=== PATIENT | male | born 1945 | race American Indian/Alaskan Native ===

== ENCOUNTER 2017-09-11 14:15 | Emergency (ER) | payer MEDICARE, OTHER ==
[2017-09-11] MEDS ORDERED: NACL 0.9% 1000 ML 1,000 ML IV ONE (14:56)
--- NOTE | 2017-09-11 14:56 | Emergency Department Report ---
ED Syncope HPI - General Chief Complaint: Syncope Stated Complaint: SYNCOPE Time Seen by Provider: 09/11/17 14:54 Source: patient, EMS Exam Limitations: no limitations - History of Present Illness Initial Comments: Patient is a 72-year-old male that presents emergency room with a syncopal episode 1. Patient is brought in by EMS from the gym. Patient states he was working out and running on an elliptical machine when he started to feel lightheaded and he sat down and the next thing he knew he was on the floor waking up. Positive LOC for unknown amount of time patient states he believes it was seconds. Patient denies chest pain shortness of breath patient denies any other symptoms. Timing/Prior Episodes: no prior history, single episode today Precipitating Factors: Positive: lightheadedness Context: standing Loss of Consciousness: brief (seconds) Current Symptoms: back to normal. denies: blurred vision, chest pain, diaphoresis, dizziness, headache, injury, lightheadedness, loss of bladder control, loss of bowel control, motionless, nausea, pale, shallow/rapid breathing, weak/absent pulse, weakness - Related Data Allergies/Adverse Reactions: Allergies pantoprazole Allergy (Verified 10/26/15 09:04) Rash Home Medications: Ambulatory Orders Arginine HCl [l-Arginine] 2,000 mg PO DAILY 10/26/15 Ascorbic Acid [Vitamin C] 500 mg PO BID 10/26/15 Aspirin [Adult Low Dose Aspirin EC] 81 mg PO DAILY 10/26/15 Butalb/Acetamin/Caff 50-325-40 [Fioricet] 1 tab PO Q8HR PRN 10/26/15 Calcium Carb/Vit D3/Minerals [Caltrate Plus] 1 tab PO BID 10/26/15 Cholecalciferol Vit D3 [Vitamin D3] 1,000 unit PO QDAY 10/26/15 Dabigatran [Pradaxa] 150 mg PO BID 10/26/15 Fluticasone [Flonase] 1 spray NS BID PRN 10/26/15 Levomefolate/B6/B12/Algal Oil [Metanx Capsule] 1 each PO DAILY 10/26/15 Metoprolol [Lopressor TAB] 25 mg PO DAILY 10/26/15 Multivit-Min/Iron Fum/Folic AC [Yusqx-Sqxcnyv-Zxqfmsjo Tablet] 1 tab PO DAILY NIFEdipine XL [Procardia Xl] 60 mg PO Q12HR 10/26/15 Tadalafil [Cialis] 5 mg PO QDAY 10/26/15 Valsartan/Hydrochlorothiazide [Diovan Hct 320-12.5 mg] 1 tab PO Q12H 10/26/15 Vardenafil HCl [Levitra] 20 mg PO QDAY PRN 10/26/15 Cyclobenzaprine [Flexeril] 10 mg PO BID PRN #12 tablet 10/31/15 methylPREDNISolone [Medrol] 4 mg PO DAILY #1 tab.ds.pk 10/31/15 traMADol [Ultram] 50 mg PO Q6HR PRN #12 tablet 10/31/15 ED Review of Systems ROS: Stated complaint: SYNCOPE Other details as noted in HPI Comment: All other systems reviewed and negative Constitutional: denies: chills, fever Eyes: denies: eye pain, eye discharge, vision change ENT: denies: ear pain, throat pain Respiratory: denies: cough, shortness of breath, wheezing Cardiovascular: denies: chest pain, palpitations Endocrine: no symptoms reported Gastrointestinal: denies: abdominal pain, nausea, diarrhea Genitourinary: denies: urgency, dysuria Musculoskeletal: denies: back pain, joint swelling, arthralgia Skin: denies: rash, lesions Neurological: denies: headache, weakness, paresthesias Psychiatric: denies: anxiety, depression Hematological/Lymphatic: denies: easy bleeding, easy bruising ED Past Medical Hx - Past Medical History Previous Medical History?: Yes Hx Hypertension: Yes Additional medical history: back pain, pleurisy, intestinal tear, ablation - Surgical History Past Surgical History?: Yes Additional Surgical History: spinal fusion, sinus/ear surgery, - Family History Family history: hypertension - Social History Smoking Status: Never Smoker Substance Use Type: Alcohol - Medications Home Medications: Home Medications Medication Instructions Recorded Confirmed Last Taken Type Arginine HCl [l-Arginine] 2,000 mg PO DAILY 10/26/15 10/26/15 10/26/15 07:00 History Ascorbic Acid [Vitamin C] 500 mg PO BID 10/26/15 10/26/15 10/26/15 07:00 History Aspirin [Adult Low Dose Aspirin EC] 81 mg PO DAILY 10/26/15 10/26/15 10/25/15 History Butalb/Acetamin/Caff 50-325-40 1 tab PO Q8HR PRN 10/26/15 10/26/15 Unknown History [Fioricet] Calcium Carb/Vit D3/Minerals 1 tab PO BID 10/26/15 10/26/15 10/26/15 07:00 History [Caltrate Plus] Cholecalciferol Vit D3 [Vitamin D3] 1,000 unit PO QDAY 10/26/15 10/26/15 07:00 History Dabigatran [Pradaxa] 150 mg PO BID 10/26/15 10/26/15 10/26/15 07:00 History Fluticasone [Flonase] 1 spray NS BID PRN 10/26/15 10/26/15 10/26/15 History 0700 Levomefolate/B6/B12/Algal Oil 1 each PO DAILY 10/26/15 10/26/15 10/26/15 07:00 History [Metanx Capsule] Metoprolol [Lopressor TAB] 25 mg PO DAILY 10/26/15 10/26/15 10/26/15 07:00 History Multivit-Min/Iron Fum/Folic AC 1 tab PO DAILY 10/26/15 10/26/15 10/26/15 07:00 History [Hltwn-Nicwbgt-Lxdoasnj Tablet] NIFEdipine XL [Procardia Xl] 60 mg PO Q12HR 10/26/15 10/26/15 10/26/15 07:00 History Tadalafil [Cialis] 5 mg PO QDAY 10/26/15 10/26/15 Unknown History Valsartan/Hydrochlorothiazide 1 tab PO Q12H 10/26/15 10/26/15 10/26/15 07:00 History [Diovan Hct 320-12.5 mg] Vardenafil HCl [Levitra] 20 mg PO QDAY PRN 10/26/15 10/26/15 Unknown History Cyclobenzaprine [Flexeril] 10 mg PO BID PRN #12 tablet 10/31/15 Unknown Rx methylPREDNISolone [Medrol] 4 mg PO DAILY #1 tab.ds.pk 10/31/15 Unknown Rx traMADol [Ultram] 50 mg PO Q6HR PRN #12 tablet 10/31/15 Unknown Rx ED Physical Exam - General Limitations: No Limitations General appearance: alert, in no apparent distress - Head Head exam: Present: atraumatic, normocephalic - Eye Eye exam: Present: normal appearance - ENT ENT exam: Present: mucous membranes moist - Neck Neck exam: Present: normal inspection - Respiratory Respiratory exam: Present: normal lung sounds bilaterally. Absent: respiratory distress - Cardiovascular Cardiovascular Exam: Present: regular rate, normal rhythm. Absent: systolic murmur, diastolic murmur, rubs, gallop - GI/Abdominal GI/Abdominal exam: Present: soft, normal bowel sounds - Rectal Rectal exam: Present: deferred - Extremities Exam Extremities exam: Present: normal inspection - Back Exam Back exam: Present: normal inspection - Neurological Exam Neurological exam: Present: alert, oriented X3 - Psychiatric Psychiatric exam: Present: normal affect, normal mood - Skin Skin exam: Present: warm, dry, intact, normal color. Absent: rash ED Course Vital Signs 09/11/17 09/11/17 14:32 16:23 Temperature 98 F Pulse Rate 57 L 82 Respiratory 16 16 Rate Blood Pressure 124/69 Blood Pressure 136/58 [Left] O2 Sat by Pulse 97 96 Oximetry - Reevaluation(s) Reevaluation #1: Discussed all results with patient. We'll check urine and repeat CBC and normal or better we'll send patient home. 09/11/17 17:31 ED Medical Decision Making - Lab Data Result diagrams: 09/11/17 18:10 09/11/17 15:07 - EKG Data -: EKG Interpreted by [facility] EKG shows normal: sinus rhythm, axis, intervals, QRS complexes, ST-T waves Rate: bradycardia - EKG Data Interpretation: no acute changes, normal EKG - Radiology Data Radiology results: report reviewed normal limits CT. - Medical Decision Making 9-year-old male presents emergency room with complaints of a syncopal episode that occurred while he was working out. Workup returned unremarkable. Patient states he feels good and is ready to go home. Patient is stable for discharge. Patient given all discharge instructions. - Differential Diagnosis exercise-induced syncope. Isolated syncopal episode. Dehydration Critical care attestation.: If time is entered above; I have spent that time in minutes in the direct care of this critically ill patient, excluding procedure time. ED Disposition Clinical Impression: Syncope, Leukocytosis Disposition: DC-01 TO HOME OR SELFCARE Is pt being admited?: No Does the pt Need Aspirin: No Condition: Stable Instructions: Syncope (ED) Additional Instructions: Patient to follow up with primary care in 3-5 days. Patient to return to ER if condition worsens. Patient to increase water. Patient to avoid any strenuous exercise until seeing primary care. Primary care to clear patient to go back to strenuous exercise and activities. Patient to rest. Referrals: PRIMARY CARE, [Referring] - 3-5 Days Time of Disposition: 19:05
[2017-09-11 15:20] LABS: Basophils # (Auto) 0.1 K/mm3 (0.0-0.1); Basophils % (Auto) 0.7 % (0.0-1.8); Eosinophils # (Auto) 0.1 K/mm3 (0.0-0.4); Eosinophils % (Auto) 0.5 % (0.0-4.3); Hematocrit 48.2 % (35.5-45.6); Hemoglobin 15.9 gm/dl (11.8-15.2); Lymphocytes % (Auto) 6.2 % (13.4-35.0); Mean Corpuscular HGB Conc 33 % (32-34); Mean Corpuscular Hemoglobin 31 pg (28-32); Mean Corpuscular Volume 94 fl (84-94); Monocytes # (Auto) 1.1 K/mm3 (0.0-0.8); Monocytes % (Auto) 6.9 % (0.0-7.3); Platelet Count 160 K/mm3 (140-440); Red Blood Count 5.16 M/mm3 (3.65-5.03)
[2017-09-11 15:33] LABS: Creatine Kinase MB 1.9 ng/mL (0.0-4.0)
[2017-09-11 15:35] LABS: Alanine Aminotransferase 20 units/L (7-56); Albumin 3.7 g/dL (3.9-5); BUN/Creatinine Ratio 18; Blood Urea Nitrogen 18 mg/dL (9-20); Calcium 8.1 mg/dL (8.4-10.2); Hemolysis Index 15
[2017-09-11 16:25] VITALS: BP 136/58
--- NOTE | 2017-09-11 16:30 | Cat Scan Report ---
FINAL REPORT EXAM: CT HEAD/BRAIN WO CON HISTORY: Syncope TECHNIQUE: Noncontrast CT axial images of the brain. PRIORS: None. FINDINGS: No parenchymal mass, hemorrhage, midline shift or hydrocephalus. No evidence of acute cortical infarct. No abnormal, extra-axial fluid or air collection. Focal encephalomalacia in the right posterior frontal and right paramedian occipital regions suggesting old ischemic change or infarcts. Age related volume loss. Osseous calvarium grossly intact. Mild mucosal thickening in the right ethmoid and sphenoid sinuses. IMPRESSION: 1. No acute intracranial findings. 2. Chronic ischemic and atrophic changes.
[2017-09-11 18:23] LABS: Hematocrit 53.2 % (35.5-45.6); Hemoglobin 17.4 gm/dl (11.8-15.2); Mean Corpuscular HGB Conc 33 % (32-34); Mean Corpuscular Hemoglobin 31 pg (28-32); Mean Corpuscular Volume 95 fl (84-94); Platelet Count 178 K/mm3 (140-440); Red Blood Count 5.63 M/mm3 (3.65-5.03); Red Cell Distribution Width 13.9 % (13.2-15.2)
[2017-09-11 18:30] LABS: Bilirubin,Urine NEG (Negative); Blood,Urine NEG (Negative); Color,Urine Yellow (Yellow); Protein,Urine <15 mg/dL mg/dL (Negative); Urobilinogen,Urine < 2.0 mg/dL (<2.0); WBC,Urine < 1.0 /HPF (0.0-6.0)
== END 2017-09-11 19:29 | disposition home or self-care (01) ==
LOC: ED 14:15
DX: R55 Syncope and collapse (principal); D72.829 Elevated white blood cell count, unspecified; I10 Essential (primary) hypertension; Z79.82 Long term (current) use of aspirin
CPT/HCPCS: 36415; 70450; 80053; 81001; 82550; 82553; 84484; 85025; 85027; 93005; 93010; 96360; 99284; J7030

== ENCOUNTER 2017-12-16 08:56 | Outpatient (CLI) | payer MEDICARE, OTHER | END 2017-12-16 08:57 | disposition home or self-care (01) | LOC: ECHO 08:56 | PROVIDERS: ATTEND Internal Medicine Cardiovascular Disease | DX: I34.0 Nonrheumatic mitral (valve) insufficiency (principal); I42.9 Cardiomyopathy, unspecified; I10 Essential (primary) hypertension; I48.91 Unspecified atrial fibrillation; I63.9 Cerebral infarction, unspecified; M47.892 Other spondylosis, cervical region; Z88.8 Allergy status to other drugs, medicaments and biological substances; Z87.891 Personal history of nicotine dependence | CPT/HCPCS: 93306 ==

== ENCOUNTER 2019-04-04 09:19 | Outpatient (CLI) | payer MEDICARE, OTHER | END 2019-04-04 09:20 | disposition home or self-care (01) | LOC: ECHO 09:19 | PROVIDERS: ATTEND Internal Medicine Cardiovascular Disease | DX: I08.8 Other rheumatic multiple valve diseases (principal); I11.9 Hypertensive heart disease without heart failure | CPT/HCPCS: 93306 ==

== ENCOUNTER 2019-04-30 12:53 | Emergency (ER) | payer MEDICARE, OTHER ==
[2019-04-30 13:02] VITALS: BP 130/73
--- NOTE | 2019-04-30 13:22 | Event Note ---
ED Screening Note Date of service: 04/30/19 Time: 13:20 ED Screening Note: cc of lower back pain causing difficulty walking x thu. no relief, getting worse bilateral back pain radiating to flank This initial assessment/diagnostic orders/clinical plan/treatment(s) is/are subject to change based on patients health status, clinical progression and re- assessment by fellow clinical providers in the ED. Further treatment and workup at subsequent clinical providers discretion. Patient/guardian urged not to elope from the ED as their condition may be serious if not clinically assessed and managed. Initial orders include: ua, xr lumbar
--- NOTE | 2019-04-30 14:27 | Cat Scan Report ---
CT lumbar spine wo con INDICATION / CLINICAL INFORMATION: 74 years Male; back pain/injury. TECHNIQUE: Axial CT images of the lumbar spine were obtained after administration of intrathecal contrast. Sagi ttal and coronal reformatted images were produced. All CT scans at this location are performed using CT dose reduction for ALARA by means of automated exposure control. COMPARISON: None available. FINDINGS: POST-SURGICAL CHANGES: None. ALIGNMENT: No significant abnormality. VERTEBRAE: No signs of fracture. Vertebral bodies are grossly normal in height throughout. Mild to moderate facet disease seen at multiple levels, with most marked findings at L4-5. Findings r esult in mild to moderate foraminal narrowing bilaterally at L4-5, with findings being greater on the right. INTERVERTEBRAL DISCS: Intervertebral disc spaces are fairly well-maintained. Foraminal/extra foraminal disc protrusion seen on the right at L4-5 which may encroach upon and socorro ens the right L4 nerve. Mild to moderate foraminal narrowing seen on the left. Mild to moderate canal narrowing seen at this level as well, which could affect descending nerves. Foraminal/extraforaminal disc protrusion seen on the right at L5-S1, combined with spondylosis. There is encroachment upon and mild flattening of the right L5 nerve. Similar findings to lesser degree no rasheeda on the left. Calcification seen in the L5-S1 disc, which may be on a chronic degenerative basis. Ochronosis might be consideration as well. PARASPINAL SOFT TISSUES: No significant abnormality. ADDITIONAL FINDINGS: Significant anterior spurring seen in the sacroiliac joints bilaterally. Small b one island seen in the posterior iliac bone on the left, which should be of no clinical significance. Punctate nephrolithiasis may be present on the right. IMPRESSION: 1. No signs of acute bony trauma to the lumbar spine. 2. Presumed degenerative changes as described above - most marked findings at L4-5 or L5-S1. Please c orrelate with dermatomal distribution of patient's symptoms, if present. 3. Punctate nephrolithiasis suggested in the right kidney. Signer Name: Rayshawn Sanchez MD, III Signed: 04/30/2019 2:23 PM Workstation Name: [id number]
[2019-04-30 14:56] LABS: Bilirubin,Urine NEG (Negative); Blood,Urine NEG (Negative); Color,Urine Yellow (Yellow); Mucus,Urine FEW /HPF; Protein,Urine <15 mg/dL mg/dL (Negative); Urobilinogen,Urine < 2.0 mg/dL (<2.0)
== END 2019-04-30 16:53 | disposition home or self-care (01) ==
LOC: ED 12:53
DX: M54.5 Low back pain (principal)
CPT/HCPCS: 72131; 81001

== ENCOUNTER 2020-02-04 14:42 | Emergency (ER) | payer MEDICARE, OTHER ==
[2020-02-04 15:04] VITALS: BP 104/56
[2020-02-04 16:49] LABS: Hematocrit 48.5 % (35.5-45.6); Hemoglobin 16.3 gm/dl (11.8-15.2); Mean Corpuscular HGB Conc 34 % (32-34); Mean Corpuscular Volume 97 fl (84-94); Platelet Count 122 K/mm3 (140-440); Red Blood Count 5.03 M/mm3 (3.65-5.03); Red Cell Distribution Width 14.9 % (13.2-15.2)
[2020-02-04 17:07] LABS: BUN/Creatinine Ratio 15; Blood Urea Nitrogen 21 mg/dL (9-20); Calcium 8.5 mg/dL (8.4-10.2); Hemolysis Index 6
[2020-02-04 17:32] LABS: Band Neutrophils # (Manual) 2.9 K/mm3; Basophils % (Manual) 0 % (0.0-1.8); Eosinophils % (Manual) 0 % (0.0-4.3); Total Cells Counted 100
[2020-02-04 17:33] LABS: Large Platelets Rare; Platelet Estimate Consistent w Auto
[2020-02-04 18:05] LABS: Bilirubin,Urine NEG (Negative); Blood,Urine LG (Negative); Color,Urine Amber (Yellow); Mucus,Urine 3+ /HPF; Protein,Urine >500 mg/dL (Negative); RBC,Urine > 182.0 /HPF (0.0-6.0); WBC,Urine > 182.0 /HPF (0.0-6.0)
[2020-02-04] MEDS ORDERED: levoFLOXacin 500 MG TAB PO ONE (18:33)
--- NOTE | 2020-02-04 18:39 | Emergency Department Report ---
ED Male HPI - General Chief complaint: Urogenital-Male Stated complaint: BLADDER ISSUES Time Seen by Provider: 02/04/20 15:26 Source: patient Mode of arrival: Ambulatory Limitations: No Limitations - History of Present Illness Initial comments: Patient is a 74-year-old F [place] male with past medical history of hypertension who is presenting with 3 to 4 days of urinary frequency and dysuria. Patient states that he will urinate and then several minutes later for feel the urge to urinate again. He states he has had some decreased appetite and some mild weakness but is otherwise feels in good spirits. States he has been taking his temperature but has been afebrile at home. Has been taking his temp since COVID-19 hip. Patient denies any abdominal pain nausea vomiting fevers chills cough cold or congestion. Patient states he just feels like he just cannot control his bladder. - Related Data Home Medications Medication Instructions Recorded Confirmed Last Taken Arginine HCl [l-Arginine] 2,000 mg PO DAILY 10/26/15 02/04/20 2 Days Ago ~02/02/20 Ascorbic Acid [Vitamin C] 500 mg PO BID 10/26/15 02/04/20 2 Days Ago ~02/02/20 Aspirin [Adult Low Dose Aspirin EC] 81 mg PO DAILY 10/26/15 02/04/20 2 Days Ago ~02/02/20 Butalb/Acetamin/Caff 50-325-40 1 tab PO Q8HR PRN 10/26/15 02/04/20 2 Days Ago [Fioricet 50-325-40] ~02/02/20 Calcium Carb/Vit D3/Minerals 1 tab PO BID 10/26/15 02/04/20 2 Days Ago [Caltrate Plus] ~02/02/20 Cholecalciferol Vit D3 [Vitamin D3 1,000 unit PO QDAY 10/26/15 02/04/20 2 Days Ago 1,000 UNIT TAB] ~02/02/20 Dabigatran [Pradaxa] 150 mg PO BID 10/26/15 02/04/20 2 Days Ago ~02/02/20 Fluticasone [Flonase] 1 spray NS BID PRN 10/26/15 02/04/20 2 Days Ago ~02/02/20 Levomefolate/B6/B12/Algal Oil 1 each PO DAILY 10/26/15 02/04/20 2 Days Ago [Metanx Capsule] ~02/02/20 Metoprolol [Lopressor TAB] 25 mg PO DAILY 10/26/15 02/04/20 2 Days Ago ~02/02/20 Multivit-Min/Iron Fum/Folic AC 1 tab PO DAILY 10/26/15 02/04/20 2 Days Ago [Enotb-Zazqlru-Hezjbevo Tablet] ~02/02/20 NIFEdipine XL [Procardia Xl] 60 mg PO Q12HR 10/26/15 02/04/20 2 Days Ago ~02/02/20 Tadalafil [Cialis] 5 mg PO QDAY 10/26/15 02/04/20 2 Days Ago ~02/02/20 Valsartan/Hydrochlorothiazide 1 tab PO Q12H 10/26/15 02/04/20 2 Days Ago [Diovan Hct 320-12.5 mg] ~02/02/20 Vardenafil HCl [Levitra] 20 mg PO QDAY PRN 10/26/15 02/04/20 2 Days Ago ~02/02/20 Azelastine 0.1% (Nf) [Astelin (Nf)] 137 mcg NS BID 02/04/20 02/04/20 Unknown Brinzolamide/Brimonidine Tart 8 ml OP BID 02/04/20 02/04/20 Unknown [Simbrinza 1%-0.2% Eye Drops] Fluticasone [Flonase] 50 mcg NS DAILY 02/04/20 02/04/20 Unknown Latanoprost 1 gm MC DAILY 02/04/20 02/04/20 Unknown Losartan Potassium 100 mg PO DAILY 02/04/20 02/04/20 Unknown Lubiprostone [Amitiza] 24 mcg PO PRN 02/04/20 02/04/20 Unknown Sildenafil Citrate [Viagra] 100 mg PO PRN 02/04/20 02/04/20 Unknown Vardenafil HCl [Levitra] 20 mg PO PRN 02/04/20 02/04/20 Unknown Vardenafil HCl [Staxyn] 10 mg PO QDAY PRN 02/04/20 02/04/20 Unknown allopurinoL [Zyloprim] 300 mg PO QDAY 02/04/20 02/04/20 Unknown traMADoL [Ultram] 50 mg PO Q6HR PRN 02/04/20 02/04/20 Unknown Previous Rx's Medication Instructions Recorded Last Taken Type Cyclobenzaprine [Flexeril] 10 mg PO BID PRN #12 tablet 10/31/15 2 Days Ago Rx ~02/02/20 Ondansetron [Zofran Odt] 4 mg PO Q8HR #10 tab.rapdis 02/04/20 Unknown Rx Phenazopyridine [Pyridium] 200 mg PO BID #6 tab 02/04/20 Unknown Rx levoFLOXacin [Levaquin TAB] 500 mg PO QDAY #10 tablet 02/04/20 Unknown Rx Allergies Allergy/AdvReac Type Severity Reaction Status Date / Time pantoprazole Allergy Rash Verified 02/04/20 15:26 ED Review of Systems ROS: Stated complaint: BLADDER ISSUES Other details as noted in HPI Comment: All other systems reviewed and negative ED Past Medical Hx - Past Medical History Previous Medical History?: Yes Hx Hypertension: Yes Additional medical history: back pain, pleurisy, intestinal tear, ablation - Surgical History Past Surgical History?: Yes Additional Surgical History: spinal fusion, sinus/ear surgery, - Social History Smoking Status: Former Smoker Substance Use Type: Alcohol, Prescribed - Medications Home Medications: Home Medications Medication Instructions Recorded Confirmed Last Taken Type Arginine HCl [l-Arginine] 2,000 mg PO DAILY 10/26/15 02/04/20 2 Days Ago History ~02/02/20 Ascorbic Acid [Vitamin C] 500 mg PO BID 10/26/15 02/04/20 2 Days Ago History ~02/02/20 Aspirin [Adult Low Dose Aspirin EC] 81 mg PO DAILY 10/26/15 02/04/20 2 Days Ago History ~02/02/20 Butalb/Acetamin/Caff 50-325-40 1 tab PO Q8HR PRN 10/26/15 02/04/20 2 Days Ago History [Fioricet 50-325-40] ~02/02/20 Calcium Carb/Vit D3/Minerals 1 tab PO BID 10/26/15 02/04/20 2 Days Ago History [Caltrate Plus] ~02/02/20 Cholecalciferol Vit D3 [Vitamin D3 1,000 unit PO QDAY 10/26/15 02/04/20 2 Days Ago History 1,000 UNIT TAB] ~02/02/20 Dabigatran [Pradaxa] 150 mg PO BID 10/26/15 02/04/20 2 Days Ago History ~02/02/20 Fluticasone [Flonase] 1 spray NS BID PRN 10/26/15 02/04/20 2 Days Ago History ~02/02/20 Levomefolate/B6/B12/Algal Oil 1 each PO DAILY 10/26/15 02/04/20 2 Days Ago History [Metanx Capsule] ~02/02/20 Metoprolol [Lopressor TAB] 25 mg PO DAILY 10/26/15 02/04/20 2 Days Ago History ~02/02/20 Multivit-Min/Iron Fum/Folic AC 1 tab PO DAILY 10/26/15 02/04/20 2 Days Ago History [Prqbn-Scckzkm-Essxxpne Tablet] ~02/02/20 NIFEdipine XL [Procardia Xl] 60 mg PO Q12HR 10/26/15 02/04/20 2 Days Ago History ~02/02/20 Tadalafil [Cialis] 5 mg PO QDAY 10/26/15 02/04/20 2 Days Ago History ~02/02/20 Valsartan/Hydrochlorothiazide 1 tab PO Q12H 10/26/15 02/04/20 2 Days Ago History [Diovan Hct 320-12.5 mg] ~02/02/20 Vardenafil HCl [Levitra] 20 mg PO QDAY PRN 10/26/15 02/04/20 2 Days Ago History ~02/02/20 Cyclobenzaprine [Flexeril] 10 mg PO BID PRN #12 tablet 10/31/15 02/04/20 2 Days Ago Rx ~02/02/20 Azelastine 0.1% (Nf) [Astelin (Nf)] 137 mcg NS BID 02/04/20 02/04/20 Unknown History Brinzolamide/Brimonidine Tart 8 ml OP BID 02/04/20 02/04/20 Unknown History [Simbrinza 1%-0.2% Eye Drops] Fluticasone [Flonase] 50 mcg NS DAILY 02/04/20 02/04/20 Unknown History Latanoprost 1 gm MC DAILY 02/04/20 02/04/20 Unknown History Losartan Potassium 100 mg PO DAILY 02/04/20 02/04/20 Unknown History Lubiprostone [Amitiza] 24 mcg PO PRN 02/04/20 02/04/20 Unknown History Ondansetron [Zofran Odt] 4 mg PO Q8HR #10 tab.rapdis 02/04/20 Unknown Rx Phenazopyridine [Pyridium] 200 mg PO BID #6 tab 02/04/20 Unknown Rx Sildenafil Citrate [Viagra] 100 mg PO PRN 02/04/20 02/04/20 Unknown History Vardenafil HCl [Levitra] 20 mg PO PRN 02/04/20 02/04/20 Unknown History Vardenafil HCl [Staxyn] 10 mg PO QDAY PRN 02/04/20 02/04/20 Unknown History allopurinoL [Zyloprim] 300 mg PO QDAY 02/04/20 02/04/20 Unknown History levoFLOXacin [Levaquin TAB] 500 mg PO QDAY #10 tablet 02/04/20 Unknown Rx traMADoL [Ultram] 50 mg PO Q6HR PRN 02/04/20 02/04/20 Unknown History ED Physical Exam - General Limitations: No Limitations General appearance: alert, in no apparent distress, other (Very pleasant) - Head Head exam: Present: atraumatic, normocephalic - Eye Eye exam: Present: normal appearance, PERRL, EOMI - ENT ENT exam: Present: normal orophraynx, mucous membranes moist - Neck Neck exam: Present: normal inspection - Respiratory Respiratory exam: Present: normal lung sounds bilaterally. Absent: respiratory distress, wheezes, rales, rhonchi - Cardiovascular Cardiovascular Exam: Present: regular rate, normal rhythm, normal heart sounds. Absent: systolic murmur, diastolic murmur, rubs, gallop - GI/Abdominal GI/Abdominal exam: Present: soft, normal bowel sounds. Absent: distended, tenderness, guarding, rebound - Rectal Rectal exam: Present: deferred - Extremities Exam Extremities exam: Present: normal inspection - Back Exam Back exam: Present: normal inspection - Neurological Exam Neurological exam: Present: alert, oriented X3 - Psychiatric Psychiatric exam: Present: normal affect, normal mood - Skin Skin exam: Present: warm, dry, intact, normal color. Absent: rash ED Course Vital Signs 02/04/20 15:03 Temperature 100.2 F H Pulse Rate 59 L Respiratory 16 Rate Blood Pressure 104/56 O2 Sat by Pulse 92 Oximetry ED Medical Decision Making - Lab Data Result diagrams: 02/04/20 16:00 02/04/20 16:00 Lab Results 02/04/20 02/04/20 02/04/20 Range/Units 16:00 16:00 Unknown WBC 26.4 H (4.5-11.0) K/mm3 RBC 5.03 (3.65-5.03) M/mm3 Hgb 16.3 H (11.8-15.2) gm/dl Hct 48.5 H (35.5-45.6) % MCV 97 H (84-94) fl MCH 32 (28-32) pg MCHC 34 (32-34) % RDW 14.9 (13.2-15.2) % Plt Count 122 L (140-440) K/mm3 Add Manual Diff Complete Total Counted 100 Seg Neutrophils % Sustainability Specialist Seg Neuts % (Manual) 85.0 H (40.0-70.0) % Band Neutrophils % 11.0 % Lymphocytes % (Manual) 2.0 L (13.4-35.0) % Reactive Lymphs % (Man) 0 % Monocytes % (Manual) 2.0 (0.0-7.3) % Eosinophils % (Manual) 0 (0.0-4.3) % Basophils % (Manual) 0 (0.0-1.8) % Metamyelocytes % 0 % Myelocytes % 0 % Promyelocytes % 0 % Blast Cells % 0 % Nucleated RBC % Not Reportable Seg Neutrophils # Man 22.4 H (1.8-7.7) K/mm3 Band Neutrophils # 2.9 K/mm3 Lymphocytes # (Manual) 0.5 L (1.2-5.4) K/mm3 Abs React Lymphs (Man) 0.0 K/mm3 Monocytes # (Manual) 0.5 (0.0-0.8) K/mm3 Eosinophils # (Manual) 0.0 (0.0-0.4) K/mm3 Basophils # (Manual) 0.0 (0.0-0.1) K/mm3 Metamyelocytes # 0.0 K/mm3 Myelocytes # 0.0 K/mm3 Promyelocytes # 0.0 K/mm3 Blast Cells # 0.0 K/mm3 WBC Morphology Not Reportable Hypersegmented Neuts Not Reportable Hyposegmented Neuts Not Reportable Hypogranular Neuts Not Reportable Smudge Cells Not Reportable Toxic Granulation Not Reportable Toxic Vacuolation Not Reportable Dohle Bodies Not Reportable Pelger-Huet Anomaly Not Reportable Donna Rods Not Reportable Platelet Estimate Consistent w auto Clumped Platelets Not Reportable Plt Clumps, EDTA Not Reportable Large Platelets Rare Giant Platelets Not Reportable Platelet Satelliting Not Reportable Plt Morphology Comment Not Reportable RBC Morphology Not Reportable Dimorphic RBCs Not Reportable Polychromasia Rare Hypochromasia Not Reportable Poikilocytosis Not Reportable Anisocytosis Not Reportable Microcytosis Not Reportable Macrocytosis Not Reportable Spherocytes Not Reportable Pappenheimer Bodies Not Reportable Sickle Cells Not Reportable Target Cells Not Reportable Tear Drop Cells Not Reportable Ovalocytes Not Reportable Helmet Cells Not Reportable [place] Bodies Not Reportable [place] Rings Not Reportable Terrell Cells Not Reportable Bite Cells Not Reportable Crenated Cell Not Reportable Elliptocytes Not Reportable Acanthocytes (Spur) Not Reportable Rouleaux Not Reportable Hemoglobin C Crystals Not Reportable Schistocytes Not Reportable Malaria parasites Not Reportable Jc Bodies Not Reportable Hem Pathologist Commnt No Sodium 140 (137-145) mmol/L Potassium 3.5 L (3.6-5.0) mmol/L Chloride 98.6 (98-107) mmol/L Carbon Dioxide 23 (22-30) mmol/L Anion Gap 22 mmol/L BUN 21 H (9-20) mg/dL Creatinine 1.4 H (0.8-1.3) mg/dL Estimated GFR > 60 ml/min BUN/Creatinine Ratio 15 % Glucose 121 H (75-100) mg/dL Calcium 8.5 (8.4-10.2) mg/dL Urine Color Sonja (Yellow) Urine Turbidity Cloudy (Clear) Urine pH 5.0 (5.0-7.0) Ur Specific [place] 1.030 (1.003-1.030) Urine Protein >500 (Negative) mg/dL Urine Glucose (UA) Neg (Negative) mg/dL Urine Ketones Tr (Negative) mg/dL Urine Blood Lg (Negative) Urine Nitrite Neg (Negative) Urine Bilirubin Neg (Negative) Urine Urobilinogen 4.0 (<2.0) mg/dL Ur Leukocyte Esterase Sm (Negative) Urine WBC (Auto) > 182.0 H (0.0-6.0) /HPF Urine RBC (Auto) > 182.0 (0.0-6.0) /HPF U Epithel Cells (Auto) 3.0 (0-13.0) /HPF Urine Mucus 3+ /HPF - Medical Decision Making Patient had a significant elevation of his white count however the patient appears well and is nontoxic-appearing. Patient does have evidence of UTI. Patient be started on Levaquin and does appear well enough to be discharged home. Critical care attestation.: If time is entered above; I have spent that time in minutes in the direct care of this critically ill patient, excluding procedure time. ED Disposition Clinical Impression: Acute cystitis Qualifiers: Hematuria presence: with hematuria Qualified Code(s): N30.01 - Acute cystitis with hematuria Disposition: TO HOME OR SELFCARE Is pt being admited?: No Does the pt Need Aspirin: No Condition: Stable Instructions: Urinary Tract Infection in Men (ED) Referrals: JES TAYLOR MD [Primary Care Provider] - 3-5 Days BRAN ARAMBULA MD [Staff Physician] - 3-5 Days Time of Disposition: 18:37
== END 2020-02-04 18:53 | disposition home or self-care (01) ==
LOC: ED 14:42
DX: N30.00 Acute cystitis without hematuria (principal); I10 Essential (primary) hypertension; Z87.891 Personal history of nicotine dependence; Z98.890 Other specified postprocedural states; Z79.899 Other long term (current) drug therapy; Z88.6 Allergy status to analgesic agent
CPT/HCPCS: 36415; 80048; 81001; 85007; 85025; 99283

== ENCOUNTER 2021-07-31 23:04 | Emergency (ER) | payer MEDICARE, OTHER | END 2021-08-01 04:40 | disposition left against medical advice (07) | LOC: ED 23:04 | DX: R31.9 Hematuria, unspecified (principal); Z53.21 Procedure and treatment not carried out due to patient leaving prior to being seen by health care provider ==

== ENCOUNTER 2021-08-16 11:19 | Outpatient (CLI) | payer MEDICARE, OTHER ==
--- NOTE | 2021-08-16 13:16 | Cat Scan Report ---
CT ABDOMEN AND PELVIS WITHOUT CONTRAST HISTORY: R31.29 OTHER MICROSCOPIC HEMATURIA. COMPARISON: None. TECHNIQUE: CT images of the abdomen and pelvis were obtained without administration of intravenous co ntrast. All CT scans at this location are performed using CT dose reduction for ALARA by means of au tomated exposure control. FINDINGS: Lungs/bones: Lung bases are clear Abdomen/pelvis: Within limits of a noncontrast exam the liver, spleen, pancreas, gallbladder and upp er GI tract appear normal. Left adrenal gland is enlarged. Hounsfield unit approximately 15. The nodu le measures 3.1 cm. Several small right renal stones largest measuring 5 mm . No obstructing stone is seen. Constipation seen throughout the colon. Urinary bladder wall thickeni ng. Prostate is markedly enlarged. Scrotal edema and fluid. Degenerative changes seen throughout spin e IMPRESSION: 1. Nonobstructing right renal stones. Chronic inflammation surrounding the kidneys. No hydronephrosis . 2. Left adrenal lesion measuring 3.1 cm. This does not fit the strict criteria for adenoma. A follow- up CT examination with contrast and delayed is could be performed for further evaluation. 3. Constipation 4. Marked bladder wall thickening. Correlation with urinalysis and follow-up 5. Prostate is markedly enlarged. Correlation with PSA Signer Name: Ramakrishna Thornton MD Signed: 08/16/2021 1:12 PM Workstation Name: [email or web address]
== END 2021-08-16 11:20 | disposition home or self-care (01) ==
LOC: CT 11:19
PROVIDERS: ATTEND Urology
DX: N20.0 Calculus of kidney (principal); N40.0 Benign prostatic hyperplasia without lower urinary tract symptoms; K59.00 Constipation, unspecified; N05.9 Unspecified nephritic syndrome with unspecified morphologic changes; E27.9 Disorder of adrenal gland, unspecified
CPT/HCPCS: 74176